=== PATIENT | female | born 1965 | race Caucasian/White ===

== ENCOUNTER 2016-03-29 01:15 | Emergency (ER) | payer SELFPAY ==
[~2016-03-29] VITALS: Ht 167.6 cm; Wt 85.0 kg
[2016-03-29 01:18] VITALS: BP 144/88; PULSE 106; RESP 16; TEMP 98.3; O2SAT 95
[2016-03-29] MEDS ORDERED: PERM5CRE TOPICAL (01:57)
[2016-03-29] MEDS ORDERED: BACT800T5 PO (01:57)
[2016-03-29] MEDS ORDERED: CEPH-460 PO (01:57)
[2016-03-29] MEDS ORDERED: PRED20 PO (01:57)
[2016-03-29] MEDS ORDERED: predniSONE 20 MG TAB PO ONE (02:00)
[2016-03-29] MEDS ORDERED: CEPHALEXIN MONOHYDRATE 500 MG CAP PO ONE (02:00)
[2016-03-29] MEDS ORDERED: diphenhydrAMINE HCL 50 MG/ML VIAL IM ONE (02:00)
[2016-03-29] MEDS ORDERED: SULFAMETHOXAZOLE-TRIMETHOPRIM DS 800-160 MG TAB PO ONE (02:00)
--- NOTE | 2016-03-29 02:02 | PD ---
HPI Chief Complaint: Skin Problem Time Seen by Provider: 01:45 Travel History International Travel<30 days: No Contact w/Intl Traveler<30days: No Traveled to known affect area: No History of Present Illness HPI This is a 51-year-old female who denies any significant medical history. She presents for evaluation of a pruritic rash. Symptom onset several weeks ago. The rash is primarily localized to the upper and lower extremities. The rash is quite pruritic and now she smelled some increased redness and pain on the anterior right lower snow secondary to scratching. She reports that she's been seen 3 times at an outside emergency room and has been prescribed various medications, she does not recall the names of them, but symptoms have persisted which prompted evaluation. Denies recent travel, fevers or chills. She admits to drinking alcohol frequently. She reports that she lives in a trailer home currently, no sick contacts with rash. No other complaints at this time. PFSH Past Medical History Medical History: Denies Significant Hx ?: Not Past Surgical History Surgical History: No Previous Surgery Social History Alcohol Use: Yes Tobacco Use: Yes (1PPD) Substance Use: No Allergies-Medications (Allergen,Severity, Reaction): Coded Allergies: Penicillin (Verified Allergy, Mild, Hives, 03/29/16) Reported Meds & Prescriptions Reported Meds & Active Scripts Active Keflex (Cephalexin) 500 Mg Cap 500 Mg PO Q6H 10 Days Bactrim DS (Sulfamethoxazole-Trimethoprim) 800-160 Mg Tab 1 Tab PO BID Prednisone 20 Mg Tab 20 Mg PO BID 5 Days Permethrin Topical (Permethrin) 5% Cream 1 Applic TOPICAL ONCE Review of Systems Except as stated in HPI: all other systems reviewed are Neg Physical Exam Narrative GENERAL: This is a somewhat disheveled appearing 51-year-old female who is in no acute distress. SKIN: Warm and dry. Abrasions multiple excoriated papular lesions on the upper and lower extremities. There is approximately 6 cm in diameter of erythema on the anterior right lower leg surrounding a small pustular lesion. Tender to palpation. There are no vesicles, no petechiae, no purpura, no annular lesions , no wheals. The rash seems to spare the face, neck, torso. HEAD: Atraumatic. Normocephalic. EYES: Pupils equal and round. No scleral icterus. No injection or drainage. ENT: No nasal bleeding or discharge. Mucous membranes pink and moist. NECK: Trachea midline. No JVD. CARDIOVASCULAR: Regular rate and rhythm. No murmur appreciated. RESPIRATORY: No accessory muscle use. Clear to auscultation. Breath sounds equal bilaterally. GASTROINTESTINAL: Abdomen soft, non-tender, nondistended. MUSCULOSKELETAL: No obvious deformities. NEUROLOGICAL: Awake and alert. No obvious cranial nerve deficits. Motor grossly within normal limits. Normal speech. Data Data Last Documented VS Vital Signs Date Time Temp Pulse Resp B/P Pulse Ox O2 Delivery O2 Flow Rate FiO2 03/29/16 01:18 98.3 106 16 144/88 95 Orders Diphenhydramine Inj (Benadryl Inj) (03/29/16 02:00) Sulfamet-Trimeth Ds 800-160 Mg (Bactrim (03/29/16 02:00) Cephalexin (Keflex) (03/29/16 02:00) Prednisone (Deltasone) (03/29/16 02:00) MDM Medical Decision Making Medical Screen Exam Complete: Yes Emergency Medical Condition: Yes Medical Record Reviewed: Yes Differential Diagnosis Pityriasis rosea, allergic contact dermatitis, irritant contact dermatitis, atopic dermatitis, psoriasis, impetigo, erysipelas, cellulitis, viral exanthem, scabies, bedbugs Narrative Course 51-year-old female who currently lives in a trailer home presents with several weeks of a pruritic rash in the extremities. She has been seen at an outside emergency room 3 different times and symptoms have persisted despite prescribed medications. She does not recall the names of the medications. On examination she has excoriated papular lesions on the upper and lower extremities and obvious cellulitis on the anterior right snow secondary to scratching. Unclear etiology of the primary rash, possibly scabies or bug bites as the rash seems to primarily involve the areas that are not covered by clothing. Plan is to treat the patient with Bactrim, Keflex, permethrin, prednisone, over-the- counter Benadryl. Recommended outpatient follow-up with a chief service observer if symptoms persist. She is being given Benadryl, prednisone, Bactrim and Keflex here in the ED. Diagnosis Primary Impression: Cellulitis Qualified Code: L03.115 - Cellulitis of right lower extremity Additional Impression: Pruritic rash Referrals: [facility] Additional Instructions: Use the medication as prescribed. Wash the areas daily with soap and water. Avoid scratching at the rash. Follow up with a chief service observer if symptoms persist. Return for any emergent medical conditions. Med/Other Pt SpecificInfo: Prescription(s) given Scripts Cephalexin (Keflex)500 Mg [id number] Mg PO Q6H 10 Days Ref 0 Prov:Ronit Flaherty MD 03/29/16 Sulfamethoxazole-Trimethoprim (Bactrim DS)800-160 Mg Tab1 Tab PO BID #20 TAB Ref 0 Prov:Ronit Flaherty MD 03/29/16 Prednisone 20 Mg Tab20 Mg PO BID 5 Days Ref 0 Prov:Ronit Flaherty MD 03/29/16 Permethrin Topical 5% Cream1 Applic TOPICAL ONCE #1 TUBE Ref 1 Prov:Ronit Flaherty MD 03/29/16 Disposition: 01 DISCHARGE HOME Condition: Stable Tarik Bell Mar 29, 2016 02:02
== END 2016-03-29 02:46 | disposition home or self-care (01) ==
LOC: NEPB 01:15
DX: L03.115 Cellulitis of right lower limb (principal)
CPT/HCPCS: 96372; 99283; J1200; J7512

== ENCOUNTER 2016-05-27 20:04 | Emergency (ER) | payer SELFPAY ==
[~2016-05-27] VITALS: Ht 165.1 cm; Wt 101.0 kg
[~2016-05-27 20:04] MED LIST: BACT800T5 PO; CEPH-460 PO; PERM5CRE TOPICAL; PRED20 PO
[2016-05-27 20:08] VITALS: BP 124/84; PULSE 103; RESP 16; TEMP 98.1; O2SAT 92
== END 2016-05-27 21:42 | disposition left against medical advice (07) ==
LOC: NED 20:04
DX: M79.606 Pain in leg, unspecified (principal)
CPT/HCPCS: 99281